=== PATIENT | male | born 1970 | race Caucasian/White ===

== ENCOUNTER 2016-12-20 08:57 | Day surgery (SDC) | payer OTHER ==
[~2016-12-20] VITALS: Ht 190.5 cm; Wt 104.0 kg
--- NOTE | 2016-12-20 07:51 | PCM.HPANE ---
Patient Data Date of Service: Dec 20, 2016 Surgeon Admitting Provider: Attending Provider:Sebastian Rivas MD Primary Care Physician:Leonor Other Provider:Maddie Cheema Anesthesia Reason for Visit Benign Neoplasm Of Colon Ht/WT & BMI Body Mass Index Allergies Coded Allergies: No Known Drug Allergies (Verified Allergy, Unknown, 12/20/16) Past Anesthesia History Anesthesia History: Denies:: Abnormal Airway, Anesthesia Reactions, Difficult Intubation, Fam Anesthesia Reaction, Fam Malignant Hypertherm, Malignant Hyperthermia Diabetes History Hx Diabetes?: No MRSA MRSA: No Medications Reported Medications Calcium Carbonate (Calcium)600 Mg Tablet1,000 Mg PO DAILY 12/20/16 Creatine Monohydrate 5,000 Gm Powder5,000 Gm MC DAILY 12/20/16 Lactobacillus Acidophilus (Probiotic)1 Each Capsule1 Each PO DAILY 12/20/16 Multivitamin (Once Daily)1 Each Tablet1 Each PO DAILY 12/20/16 Omeprazole 40 Mg Capsule.dr40 Mg PO DAILY Ref 0 12/20/16 Ubidecarenone (Co Q-10)100 Mg Vimfuwk282 Mg PO DAILY 12/19/16 Lactobacillus Acidophilus (Probiotic)1 Each Capsule2 Each PO DAILY 08/28/13 MULTIVITAMIN-Expunged Drug, Do Not Renew! (MULTI VITAMIN -Expunged Drug, Do Not Renew!)1 Each Tablet1 Each PO DAILY 08/28/13 Creatine Monohydrate (Creatine 5000)5,000 Mg Powd.pack0.5 Tsp PO DAILY 08/28/13 Calcium Carbonate (Natural Calcium)500 Mg Tablet1,000 Mg PO DAILY 08/28/13 Discontinued Reported Medications Clarithromycin 500 Mg Hfekti113 Mg PO BID Ref 0 12/19/16 Ubidecarenone (Coenzyme Q10)100 Mg Zelznf905 Mg PO DAILY 08/28/13 Cetirizine-Expunged Drug, Do Not Renew! 10 Mg Zhnwqg36 Mg PO DAILY 08/28/13 History HEENT History: Denies:: Abnormal Airway Difficult Intubation Dysphagia Hearing Problem Hx of Heart Problems?: No Cardiovascular History: Denies:: AICD Atrial Fibrillation Chest Pain Hypertension Pacemaker Valvular Heart Disease Hx of Respiratory Problem?: No Respiratory History: Denies:: Asthma COPD Cough Hemoptysis Pneumonia Tuberculosis Neurological History: Denies:: CVA Hx of GI Problems?: No Gastrointestinal History: Denies:: Cirrhosis Diverticulitis Gastroesphageal Reflux Hiatal Hernia Rectal Bleeding Musculoskeletal History: Positive for:: Joint Replacement (feet and hands) Psycho Social History: Positive for:: Anxiety Denies:: Hx Depression Hx Surgeries?: Yes (feet/hand reconstructions) Hx Any Other Health Problems?: No Hx Diabetes: No Hx Alcohol Use: Yes (one drink/month) Stop/Bang Treated for Sleep Apnea?: No Do You Have a CPAP Machine?: No S-Snoring: Do You Snore Loudly: No T-Tired: feel tired, fatigued: Yes O-Obsered: Observed not breath: No P-Blood Pressure: treated: No HANANE Risk Assessment: Low Risk, <3 Yes Risk Assessment Category Category 1A: Patient has history of documented sleep apnea, and HAS NOT received any narcotic, sedative or anesthesia administration during this stay. Category 1B: Patient has history of documented sleep apnea, and HAS received any narcotic , sedative or anesthesia administration during this stay Category 2: Patient has SUSPECTED Obstructive Sleep Apnea, and HAS received any narcotic , sedative or anesthesia administration during this stay. Category 3: Patient has SUSPECTED Obstructive Sleep Apnea and HAS NOT received narcotic, sedative or anesthesia administration during this stay. Category 4: Outpatient in Procedural Areas with known sleep apnea or who screen positive for High Risk via the STOP/BANG questionnaire. Exam Exam General Appearance: Alert, Oriented X3, Cooperative HEENT/AIRWAY: MP 2 Lungs: Clear to Auscultation, Normal Air Movement Heart: Exam Unremarkable, Normal S1, Normal S2 Plan Impression Patient chart reviewed, patient interviewed and anesthestic plan with risks, benefits, and alternatives discussed, and informed consent obtained. ASA Physical Status: ASA2 Mod Systemic Disease (Hhmiqth-Kvsvd-tpazf disease without jaw/c-s abnormalities.) Anesthetic Plan: MAC Bene/Risks/Altern/Consents: Yes HP Complete Prior to Induction: Yes Russell Desouza DO Dec 20, 2016 07:51
[~2016-12-20 08:57] MED LIST: CALC-864 PO; CETI10TA PO; CLAR500T PO; LACT1CAP65 PO; Lactated Ringer's 1,000 ML IV ONE; Lactated Ringer's 1,000 ML IV SCH; MULT-1018 PO; MetoCLOpramide 5 mg/mL 2 mL Inj IVPUSH PRN; Ondansetron 2 mg/mL 2 mL Inj IVPUSH PRN; UBID100C25 PO; UBID100T7 PO; [UNRECOGNIZED DRUG - CODE] PO
[2016-12-20] MEDS ORDERED: Propofol 10,000 mCg/mL 20 mL Inj ONE (08:58)
[2016-12-20 09:24] VITALS: BP 128/85; PULSE 60; RESP 16; O2SAT 98
[2016-12-20] MEDS ORDERED: OMEP40CA36 PO (09:32)
[2016-12-20] MEDS ORDERED: CALC600T12 PO (09:34)
[2016-12-20] MEDS ORDERED: [UNRECOGNIZED DRUG - CODE] MC (09:34)
[2016-12-20] MEDS ORDERED: LACT1CAP65 PO (09:34)
[2016-12-20] MEDS ORDERED: MULT-666 PO (09:34)
[2016-12-20] MEDS ORDERED: Lactated Ringer's 1,000 ML IV SCH (09:50)
[2016-12-20 10:33] VITALS: BP 104/68; PULSE 81; RESP 14; O2SAT 98
--- NOTE | 2016-12-20 10:41 | PCM.ANEP1 ---
Post Anesthesia Phase 1 PACU Phase 1 Assessment Date of Service: Dec 20, 2016 Vital Signs Vital Signs Date Time Temp Pulse Resp B/P Pulse Ox O2 Delivery O2 Flow Rate FiO2 12/20/16 09:24 36.7 60 16 128/85 98 Room Air Anesthetic Administered: MAC Level of Alertness: Awake, talking COULTER's with Equal Strength: Yes Pain: No Nausea or Vomiting: No Oxygen Delivery: Room Air Lungs: Clear to Auscultation, Normal Air Movement Dermatome Level: Full Sensation Russell Desouza DO Dec 20, 2016 10:41
--- NOTE | 2016-12-20 10:46 | PCM.ANEP2 ---
Post Anesthesia Evaluation ASA/CMS Post Anesthesia Date of Service: Dec 20, 2016 VS in Patient's Normal Range?: Yes Resp Stable; Airway Patent?: Yes CV Function & Hydration Stable: Yes Mental Status Recovered?: Yes Pain control Satisfactory?: Yes N/V Control Satisfactory?: Yes Russell Desouza DO Dec 20, 2016 10:46
--- NOTE | 2016-12-20 20:49 | ENDO ---
[address] [address] ENDOSCOPY PROCEDURE PATIENT: FAUSTINO BYRNE : 1970 MR#: [id number] ADMIT: 12/20/2016 JOB ID: [id number] PROCEDURE: Colonoscopy with cold snare polypectomy and cold biopsy polypectomy. INDICATIONS: A 46-year-old male with a family history of colon cancer and a personal history of colon polyps, returning for surveillance. EQUIPMENT: [id number]-[id number]. SEDATION: Monitored anesthesia as provided by Dr. Russell Desouza. COMPLICATIONS: None identified. BOWEL PREPARATION: Fair. Adequate exam. PROCEDURE INFORMATION: After the risks and benefits were explained, written and verbal informed consent was obtained. The patient was brought into the endoscopy suite and placed into the left lateral decubitus position. Sedation was achieved using the above-stated medications with the addition of oxygen via nasal cannula. A digital rectal examination was accomplished. No significant pathology appreciated. The scope was introduced into the rectum and advanced to the cecum as identified by the appendiceal orifice and ileocecal valve. The scope was slowly withdrawn to carefully examine the mucosa for any defects or lesions. Retroflexed views were not accomplished in the rectum. Multiple direct views were made through the dentate line. The colon was decompressed, the scope removed from the patient who tolerated the procedure well. FINDINGS: There were two small polyps in the ascending colon, removed with cold snare. One of these, there was a little residual polypoid material left over and it was cleaned up with cold forceps. There was another very small, perhaps 1-2 mm polyp initially seen around the hepatic flexure that I could not relocate after the forceps were deployed. No other significant pathology was appreciated throughout. ENDOSCOPIC DIAGNOSES: 1. Hemorrhoids (not mentioned above). 2. Colon polyps. RECOMMENDATIONS: Await histopathology. Considering personal history of colon polyps and family history of colon cancer, repeat colonoscopy is suggested for three years' time with anesthesia based on the patient's severe procedural anxiety. CC: Chas Belcher.
--- NOTE | 2016-12-23 10:09 | PATH ---
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 ICD10 CODE D12.6 GROSS DESCRIPTION: The specimen is received in one formalin filled container labeled with the patient's name, sublabeled "colon polyps" and consists of 4 portions of tissue which aggregate to 0.4 x 0.4 x 0.3 CM. The specimen is entirely submitted in one cassette. 12/20/2016 [facility] MICRO DESCRIPTION: See diagnosis. ICD-9 CODES: CPT CODES: 1: 28497 Electronically Signed Out Sebastian Figueroa MD [facility] Pathology [facility] [address], [place] [address] Technical component performed at [facility], [address], [place], [address]
== END 2016-12-20 23:59 | disposition home or self-care (01) ==
LOC: END 08:57
PROVIDERS: ATTEND Internal Medicine Gastroenterology
DX: D12.2 Benign neoplasm of ascending colon (principal); K64.8 Other hemorrhoids; Z86.010 Personal history of colon polyps; Z80.0 Family history of malignant neoplasm of digestive organs; Z79.899 Other long term (current) drug therapy